=== PATIENT | female | born 1950 | race Caucasian/White ===

== ENCOUNTER 2016-10-04 10:35 | Emergency (ER) | payer BC ==
[~2016-10-04] VITALS: Ht 160 cm; Wt 85.7 kg
[~2016-10-04 10:35] MED LIST: AMLO2.5T PO; AMOX875T PO; ATOR-24 PO; CHOL100010 PO; CRG40 PO; CTP3 PO; GLC500 PO; INSDGI SC; MULT-506 PO; NVLGI SC; PANT40TA PO; SYN200 PO
[2016-10-04 10:49] VITALS: TEMP 36.9; Ht 160 cm; Wt 85.7 kg
[2016-10-04] MEDS ORDERED: SODIUM CHLORIDE 0.9% 1000ML 1,000 ML IV STA (11:07)
[2016-10-04] MEDS ORDERED: ONDANSETRON INJ 2 MG/ML 2 ML VIAL IV STA (11:07)
[2016-10-04] MEDS ORDERED: MECLIZINE HCL 25 MG TAB PO STA (11:07)
[2016-10-04] MEDS ORDERED: SODIUM CHLORIDE 0.9% 1000ML 500 ML IV STA (11:07)
--- NOTE | 2016-10-04 11:12 | EMERGENCY ROOM VISIT NOTE ---
History Report prepared by Nicholas: Toshia Loco Under the Supervision of: Dr. Sabas Dias M.D. First contact with patient: 11:00 Chief Complaint: DIZZY Stated Complaint: DIZZY,STOMACH UPSET,HEART WAS POUDNING BAD History of Present Illness The patient is a 66 year old female who presents to the Emergency Room with complaints of persistent dizziness that started around midnight last night. She states "I got up and was staggering around like I was drunk". She tried to go back to sleep, but experienced nausea and her heart "pounding". She attempted to get some things done around the house, but her symptoms persisted, so she came here to the ED. She notes about 3 days ago, she experienced an "aching" in both of her arms, almost like pain from overuse, but she had not done anything physical that day. The pain eventually resolved, but she admits to some chest pain that started 2 days ago, and states she is still experiencing pain in the left side of her chest. She denies any history of previous [place]'s or vertigo. She admits to issues with chronic sinusitis and ear infections. She notes she was recently placed on a new medication for diabetes, and admits to feeling "irritated" in her urinary area since starting the new medication. Source of History: patient Onset: midnight last night Position: other (global) Timing: other (persistent) Associated Symptoms: + chest pain, + nausea Review of Systems See HPI for pertinent positives & negatives. A total of 10 systems reviewed and were otherwise negative. Past Medical & Surgical Medical Problems: (1) Diabetes mellitus Social History Smoking Status: Never Smoker Alcohol Use: occasionally Drug Use: none Marital Status: Housing Status: lives with family Occupation Status: employed Current/Historical Medications Scheduled Amlodipine Besylate (Norvasc), 5 MG OR DAILY Atorvastatin (Lipitor), 40 MG PO DAILY Clonidine Hcl (Catapres *), 0.3 MG PO HS Insulin Aspart (Novolog), 0 SC AC Insulin Glargine (Lantus), 65-70 UNITS SC QPM Insulin Glargine (Lantus), 12 UNIT SC QAM Levothyroxine Sodium (Synthroid), 200 MCG PO DAILY Levothyroxine Sodium (Synthroid), 50 MCG PO DAILY Metformin HCl (Metformin HCl), 500 MG PO QID Nadolol (Corgard *), 80 MG PO BID Pantoprazole (Protonix), 40 MG PO DAILY PRN Scheduled PRN Meclizine HCl (Meclizine HCl), 1 TAB PO Q6 PRN for Dizziness or Vertigo Allergies Coded Allergies: Cat Dander (Unverified Allergy, Mild, ITCHY EYES, 10/04/16) Dog Dander (Unverified Allergy, Mild, ITCHY EYES, 10/04/16) Dust (Unverified Allergy, Mild, ITCHY EYES, 10/04/16) Molds & Smuts (Unverified Allergy, Mild, ITCHY EYES, 10/04/16) Physical Exam Vital Signs Date Time Temp Pulse Resp B/P Pulse Ox O2 Delivery O2 Flow Rate FiO2 10/04/16 13:18 66 14 195/95 96 Room Air 10/04/16 12:31 55 20 153/84 96 Room Air 10/04/16 11:14 99 Room Air 10/04/16 11:07 63 10/04/16 10:49 36.9 60 18 195/95 99 Room Air Physical Exam GENERAL: Patient is in no acute distress. HEENT: No acute trauma, normocephalic atraumatic, mucous membranes moist, no nasal congestion, no scleral icterus, no nystagmus, PERRL. Fluid behind both TM' s, no infection. NECK: No stridor, no adenopathy, no meningismus, trachea is midline. LUNGS: Clear to auscultation bilaterally, no wheeze, no rhonchi, breath sounds equal. HEART: Without murmurs gallops or rubs, regular rate and rhythm. ABDOMEN: Soft, nontender, bowel sounds positive, no hernias, no peritonitis. EXTREMITIES: No cyanosis or edema, full range of motion of all the joints without pain or difficulty, no signs for acute trauma. NEUROLOGIC: Oriented x 3, no acute motor or sensory deficits, no focal weakness. No pronator drift or cerebellar disfunction. SKIN: No rash, no jaundice, no diaphoresis. Medical Decision & Procedures ER Provider Diagnostic Interpretation: This CT scan was reviewed and interpreted by the radiologist and reviewed by myself. CT HEAD WITHOUT CONTRAST (CT) IMPRESSION: No acute intracranial findings Electronically signed by: Ashok Cook M.D. 10/04/2016 12:02 PM Laboratory Results 10/04/16 11:15 Red Blood Count 5.21, Mean Corpuscular Volume 83.5, Mean Corpuscular Hemoglobin 28.8, Mean Corpuscular Hemoglobin Concent 34.5, Mean Platelet Volume 10.7, Neutrophils (%) (Auto) 65.0, Lymphocytes (%) (Auto) 23.7, Monocytes (%) (Auto) 8.9, Eosinophils (%) (Auto) 1.9, Basophils (%) (Auto) 0.3, Neutrophils # (Auto) 6.66, Lymphocytes # (Auto) 2.43, Monocytes # (Auto) 0.91, Eosinophils # (Auto) 0.19, Basophils # (Auto) 0.03 10/04/16 11:15 Test 10/04/16 11:15 10/04/16 12:30 White Blood Count 10.24 K/uL (4.8-10.8) Red Blood Count 5.21 M/uL (4.2-5.4) Hemoglobin 15.0 g/dL (12.0-16.0) Hematocrit 43.5 % (37-47) Mean Corpuscular Volume 83.5 fL (80-100) Mean Corpuscular Hemoglobin 28.8 pg (25-34) Mean Corpuscular Hemoglobin Concent 34.5 g/dl (32-36) Platelet Count 236 K/uL (130-400) Mean Platelet Volume 10.7 fL (7.4-10.4) Neutrophils (%) (Auto) 65.0 % Lymphocytes (%) (Auto) 23.7 % Monocytes (%) (Auto) 8.9 % Eosinophils (%) (Auto) 1.9 % Basophils (%) (Auto) 0.3 % Neutrophils # (Auto) 6.66 K/uL (1.4-6.5) Lymphocytes # (Auto) 2.43 K/uL (1.2-3.4) Monocytes # (Auto) 0.91 K/uL (0.11-0.59) Eosinophils # (Auto) 0.19 K/uL (0-0.5) Basophils # (Auto) 0.03 K/uL (0-0.2) RDW Standard Deviation 42.1 fL (36.4-46.3) RDW Coefficient of Variation 13.7 % (11.5-14.5) Immature Granulocyte % (Auto) 0.2 % Immature Granulocyte # (Auto) 0.02 K/uL (0.00-0.02) Anion Gap 8.0 mmol/L (3-11) Est Creatinine Clear Calc Drug Dose 77.6 ml/min Estimated GFR () 96.1 Estimated GFR (Non- 82.9 BUN/Creatinine Ratio 13.8 (10-20) Calcium Level 9.1 mg/dl (8.5-10.1) Total Bilirubin 0.3 mg/dl (0.2-1) Aspartate Amino Transf (AST/SGOT) 8 U/L (15-37) Alanine Aminotransferase (ALT/SGPT) 20 U/L (12-78) Alkaline Phosphatase 129 U/L (45-117) Troponin I < 0.015 ng/ml (0-0.045) Total Protein 7.4 gm/dl (6.4-8.2) Albumin 3.7 gm/dl (3.4-5.0) Globulin 3.7 gm/dl (2.5-4.0) Albumin/Globulin Ratio 1.0 (0.9-2) Thyroid Stimulating Hormone (TSH) 1.110 uIu/ml (0.300-4.500) Free Thyroxine 1.04 ng/dl (0.80-1.60) Urine Color YELLOW Urine Appearance CLEAR (CLEAR) Urine pH 7.0 (4.5-7.5) Urine Specific [place] 1.031 (1.000-1.030) Urine Protein NEG (NEG) Urine Glucose (UA) 3+ (NEG) Urine Ketones NEG (NEG) Urine Occult Blood NEG (NEG) Urine Nitrite NEG (NEG) Urine Bilirubin NEG (NEG) Urine Urobilinogen NEG (NEG) Urine Leukocyte Esterase NEG (NEG) Laboratory results reviewed by me. Medications Administered Medications (Trade) Dose Ordered Sig/Alejandro Route Start Time Stop Time Status Last Admin Dose Admin Sodium Chloride (Nss 1000ml) 500 ml @ 999 mls/hr Q31M STAT IV 10/04/16 11:07 10/04/16 11:37 DC 10/04/16 11:19 999 MLS/HR Ondansetron HCl 4 mg 4 mg NOW STAT IV 10/04/16 11:07 10/04/16 11:09 DC 10/04/16 11:19 4 MG Sodium Chloride (Nss 1000ml) 1,000 ml @ 200 mls/hr Q5H STAT IV 10/04/16 11:07 10/04/16 13:45 DC 10/04/16 11:19 200 MLS/HR Meclizine HCl (Antivert Tab) 25 mg NOW STAT PO 10/04/16 11:07 10/04/16 11:09 DC 10/04/16 11:19 25 MG Amlodipine Besylate (Norvasc Tab) 5 mg NOW ONCE PO 10/04/16 13:00 10/04/16 13:02 DC 10/04/16 13:13 5 MG Nadolol (Corgard Tab) 80 mg NOW STAT PO 10/04/16 12:59 10/04/16 13:02 DC 10/04/16 13:13 80 MG ECG Indication: weakness Rate (beats per minute): 64 Rhythm: normal sinus (normal sinus rhythm) Findings: no acute ischemic change, no ectopy ED Course 1101: The patient was evaluated in room C4. A complete history and physical exam was performed. 1107: Meclizine HCl 25 mg PO, NSS 1000 ml @ 200 mls/hr IV, Zofran 4 mg IV, NSS 500 ml @ 999 mls/hr IV. 1246: I reevaluated the patient. She is feeling much better. I discussed her results and discharge instructions and she verbalized complete understanding and agreement. 1258: Nursing informed me the patient would like her normal blood pressure medications before she leaves the ED. She did not take them this morning. I will place orders. 1259: Corgard Tab 80 mg PO. 1300: Norvasc Tab 5 mg PO. Medical Decision The differential diagnoses considered include: Dehydration, vertigo, UTI, anemia , electrolyte imbalance, cardiac ischemia and dysrhythmia. There is no leukocytosis or concerning anemia. No significant electrolyte abnormality, kidney failure, hepatitis. The patient appears to be in a euthyroid state. EKG shows a normal sinus rhythm, no acute ischemia. Cardiac enzyme testing times one is not suggestive of acute cardiac injury. Brain CT shows no acute bleed or mass effect. Urinalysis does not show evidence for infection. On exam, the patient had no focal neurologic deficits. The patient received IV saline, IV Zofran and oral meclizine. The patient feels improved. As she had forgotten to take her normal blood pressure medications this a.m., she received oral Norvasc and oral Corgard. The patient does feel improved. I think her presentation is secondary to vertigo. She does have worsening symptoms with movement, she has a spinning sensation. She feels improved with treatment and is being discharged with some meclizine for her symptoms. Her chest pain is not consistent with cardiac ischemia, it is not exertional. I suspect it is musculoskeletal. Impression Primary Impression: Dizziness Scribe Attestation The scribe's documentation has been prepared under my direction and personally reviewed by me in its entirety. I confirm that the note above accurately reflects all work, treatment, procedures, and medical decision making performed by me. Departure Information Dispostion Home / Self-Care Prescriptions Meclizine HCl (Meclizine HCl) 25 Mg Tab 1 TAB PO Q6 Y for Dizziness or Vertigo, #15 TAB Prov: Sabas Dias M.D. 10/04/16 Referrals Gagandeep Marte M.D. (PCP) Patient Instructions My [facility] Additional Instructions rest stay well hydrated meclizine 1 tab every 6 hours as needed for vertigo return for worsening symptoms or vomiting see negrito powell for a recheck this week
[2016-10-04 11:14] VITALS: O2SAT 99
[2016-10-04] MEDS ORDERED: LEVO50TA PO (11:29)
[2016-10-04] MEDS ORDERED: LEVO200T PO (11:29)
[2016-10-04] MEDS ORDERED: GLC500 PO (11:30)
[2016-10-04 11:31] LABS: BASO % 0.3 %; BASO ABS # 0.03 K/uL (0-0.2); COMPLETE YES; EOS % 1.9 %; HEMATOCRIT 43.5 % (37-47); IG% 0.2 %; LYMPH % 23.7 %; LYMPH ABS # 2.43 K/uL (1.2-3.4); MEAN CELL VOLUME 83.5 fL (80-100); MEAN CORPUSCULAR HEMOGLOBIN 28.8 pg (25-34); MEAN CORPUSCULAR HGB CONC 34.5 g/dl (32-36); MEAN PLATELET VOLUME 10.7 fL (7.4-10.4); MONO % 8.9 %; PLATELET COUNT 236 K/uL (130-400); RED BLOOD COUNT 5.21 M/uL (4.2-5.4); WHITE BLOOD COUNT 10.24 K/uL (4.8-10.8)
[2016-10-04 11:51] LABS: ALT/SGPT 20 U/L (12-78); AST/SGOT 8 U/L (15-37); BLOOD UREA NITROGEN 10 mg/dl (7-18); BUN/CREATININE RATIO 13.8 (10-20); CALCIUM 9.1 mg/dl (8.5-10.1); CARBON DIOXIDE 26 mmol/L (21-32); CHLORIDE 107 mmol/L (98-107); CREATININE 0.76 mg/dl (0.60-1.20); GLUCOSE 152 mg/dl (70-99); SODIUM 141 mmol/L (136-145)
[2016-10-04 12:01] LABS: ALKALINE PHOSPHATASE 129 U/L (45-117)
--- NOTE | 2016-10-04 12:04 | DIAGNOSTIC IMAGING REPORT ---
CT HEAD WITHOUT CONTRAST (CT) CLINICAL HISTORY: Altered mental status and weakness. COMPARISON STUDY: CT scan of paranasal sinuses dated 07/24/2014 TECHNIQUE: Axial CT of the brain is performed from the vertex to the skull base. IV contrast was not administered for this examination. CT DOSE: 810.83 mGy.cm FINDINGS: No intra or extra-axial mass lesions are visualized. There is no CT evidence of acute cortical infarction. There is no evidence of midline shift. There is no acute hemorrhage. No calvarial fractures are visualized. There are patchy white matter hypodensities likely on a small vessel basis. There is no evidence of pathologic ventricular dilatation. Postsurgical changes are present within the sinuses. There is moderate bilateral maxillary sinus mucosal thickening. There is ethmoid sinus mucosal thickening. There is a stable 8 mm lytic focus within the right frontal bone. IMPRESSION: No acute intracranial findings Electronically signed by: Ashok Cook M.D. 10/04/2016 12:02 PM Dictated Date/Time: 10/04/2016 12:00 PM
[2016-10-04 12:42] LABS: URINE APPEARANCE CLEAR (CLEAR); URINE BILIRUBIN NEG (NEG); URINE COLOR YELLOW; URINE NITRITE NEG (NEG); URINE SPECIFIC GRAVITY 1.031 (1.000-1.030); UROBILINOGEN NEG (NEG); ZZUR CULT IF INDIC CLEAN CATCH NO
[2016-10-04 12:43] LABS: MANUAL MICROSCOPIC REQUIRED? NO; REVIEW REQ? NO
[2016-10-04] MEDS ORDERED: ANT25 PO (12:57)
[2016-10-04] MEDS ORDERED: NADOLOL 40 MG TAB PO STA (12:59)
[2016-10-04] MEDS ORDERED: AMLODIPINE BESYLATE 5 MG TAB PO ONE (13:00)
[2016-10-04 13:18] VITALS: BP 195/95; PULSE 66; O2SAT 96
[2017-06-17] MEDS ORDERED: NADO80TA PO (14:23)
[2017-06-17] MEDS ORDERED: LEVO200T PO (14:23)
[2017-06-17] MEDS ORDERED: NVLG SQ ×2 (14:23)
[2017-06-17] MEDS ORDERED: CLON0.3T3 PO (14:23)
[2017-06-17] MEDS ORDERED: INSDGI SC (14:24)
[2017-06-18] MEDS ORDERED: HYDR-5688 PO (10:41)
== END 2016-10-04 13:27 | disposition home or self-care (01) ==
LOC: C.EDB 10:36 → C.EDC 13:27
DX: R42 Dizziness and giddiness (principal); E11.9 Type 2 diabetes mellitus without complications; Z79.4 Long term (current) use of insulin; Z79.84 Long term (current) use of oral hypoglycemic drugs

== ENCOUNTER → 2017-06-18 | Day surgery (SDC) | payer OTHER ==
[2017-06-17 14:09] VITALS: Ht 160 cm; Wt 81.8 kg
[~2017-06-18] VITALS: Ht 160 cm; Wt 81.8 kg
[~2017-06-18] MED LIST changes: -AMOX875T PO; +ATROPINE SULFATE 0.1 MG/ML 5ML SYR IV PRN; +CEFAZOLIN 2000 MG/60 ML D5W IV SCH; -CHOL100010 PO; +CLON0.3T3 PO; -CRG40 PO; -CTP3 PO; +DEXAMETHASONE SOD INJ 4 MG/ML VIAL ONE; +EpHEDrine SULFATE INJ 50 MG/ML AMP IV PRN; +EpINEphrine INJ 1MG/ML AMP 1 MG/ML AMP ONE; +FENTANYL CITRATE INJ 50 MCG/1 ML 2 ML VIAL IV PRN; +FENTANYL CITRATE INJ 50 MCG/1 ML 2 ML VIAL ONE; +HYDR-5688 PO; +HYDROCODONE/ACETAMOPHEN 5/325MG TAB PO PRN; +LEVO200T PO; +LIDO 2%/EPINEPHRINE 1:100000 20 ML VIAL INFIL ONE; +LIDOCAINE 4% MPF SOAK 5 ML = 1 DOSE TOP ONE; +LIDOCAINE HCL 2% 2 ML VIAL (20MG/ML) ONE; +MIDAZOLAM HCL 1 MG/ML 2ML VIAL ONE; -MULT-506 PO; +NADO80TA PO; +NVLG SQ; -NVLGI SC; +ONDANSETRON INJ 2 MG/ML 2 ML VIAL IV PRN; +ONDANSETRON INJ 2 MG/ML 2 ML VIAL ONE; +PROMETHAZINE HCL INJ 6.25 MG in SODIUM CHLORIDE 0.9% 50ML 50 ML IV PRN; +PROPOFOL IV EMULSION 10 MG/ML 20 ML VIAL IV ONE; +SODIUM CHLORIDE 0.9% 1000ML 1,000 ML IV SCH; -SYN200 PO
--- NOTE | 2017-06-18 06:58 | History and Physical: Surg Cnt ---
History & Physical Date Jun 18, 2017. Chief Complaint sinusitis History of Present Illness The patient is a 67 year old female with complaints of chronic sinusitis with left maxillary sinus fungus ball Past Medical/Surgical History Medical Problems: (1) Diabetes mellitus Additional History Hepatic Disease: No Endocrine Disorder: Yes Kidney Disease: No Hypertension: Yes Heart Disease: No Bleeding Tendencies: No Infectious Diseases: No Allergies Coded Allergies: Cat Dander (Unverified Allergy, Mild, ITCHY EYES, 06/17/17) Dog Dander (Unverified Allergy, Mild, ITCHY EYES, 06/17/17) Dust (Unverified Allergy, Mild, ITCHY EYES, 06/17/17) Molds & Smuts (Unverified Allergy, Mild, ITCHY EYES, 06/17/17) NO KNOWN DRUG ALLERGIES (Verified Allergy, Mild, ., 06/17/17) Home Medications Scheduled Amlodipine Besylate (Norvasc), 2.5 MG PO QAM Atorvastatin (Lipitor), 40 MG PO HS Clonidine Hcl (Catapres), 2 TAB PO HS Insulin Aspart (Novolog), 10 UNITS SQ QAM AND LUNCH Insulin Aspart (Novolog), 15 UNITS SQ DINNER Insulin Glargine (Lantus), 65 UNITS SC QPM Levothyroxine Sodium (Synthroid), 200 MCG PO ,,W,TH,SAT Levothyroxine Sodium (Synthroid), 400 MCG PO THU, THU Metformin HCl (Metformin HCl), 500 MG PO BID Nadolol (Corgard), 80 MG PO BID Pantoprazole (Protonix), 40 MG PO QAM Physical Examination Skin: warm/dry, no rash Eyes: normal inspection, EOMI, sclerae normal ENT: normal ENT inspection, pharynx normal Head: normocephalic, atraumatic Neck: supple, no adenopathy, trachea midline Respiratory/Chest: lungs clear, normal breath sounds, no respiratory distress Cardiovascular: regular rate, rhythm, no edema, no murmur Abdomen / GI: normal bowel sounds, non tender Back: normal inspection Extremities: normal inspection, normal range of motion Neurologic/Psych: no motor/sensory deficits, alert, normal reflexes, oriented x 3 Diagnosis chronic sinusitis with left maxillary fungus ball Plan of Treatment endoscopic sinus surgery
--- NOTE | 2017-06-18 06:58 | History & Physical Bridge Note ---
H&P Re-Evaluation Bridge Note: I have examined the patient, reviewed the History & Physical and in the interval since the performance of the History & Physical I have noted the following changes of clinical significance: No changes noted
[2017-06-18] MEDS: LACTATED RINGER'S 1000ML 1,000 ML IV SCH ×2 (08:23→11:35)
--- NOTE | 2017-06-18 10:43 | Discharge Instructions-SurgCtr ---
Discharge Instructions Date of Service Jun 18, 2017. Visit Reason for Visit: Chronic Sinusitis Discharge Discharge Diagnosis / Problem: and polyposis Discharge Goals Goal(s): Improve disease control Medications Stopped Medications Name(s): metformin last dose Thursday. No insulin this am. Activity Recommendations Activity Limitations: per Instructions/Follow-up section Anesthesia . Post Anesthesia Instructions: If you have had General Anesthesia or IV Sedation: * Do not drive today. * Resume driving when surgeon permits. * Do not make important decisions or sign legal documents today. * Call surgeon for: 1. Temperature elevations greater than 101 degrees F. 2. Uncontrollable pain. 3. Excessive bleeding. 4. Persistent nausea and vomiting. 5. Medication intolerance (nausea, vomiting or rash). * For nausea and vomiting use only clear liquids such as: tea, soda, bouillon until nausea subsides, then gradually increase diet as tolerated. * If you have any concerns or questions, call your surgeon's office. If physician is unavailable and it is an emergency, call 911 or go to the nearest emergency room. . Instructions / Follow-Up Instructions / Follow-Up ACTIVITY RECOMMENDATIONS: * Being up and around is good, but no strenuous activity, heavy lifting or physical exertion for one week. * Keep your head elevated 30 degrees when lying down or sleeping. * Do not blow your nose for 48 hours, sniff back instead. * Avoid hot showers. OVER THE COUNTER MEDICATIONS: * You may use Tylenol * Avoid aspirin or aspirin containing products, e.g. as they may increase bleeding. SPECIAL CARE INSTRUCTIONS: * Expect to have bloody drainage from your nose and/or down your throat for one to three days. Change drip pad as needed. * Begin irrigating your nose with saline solution today, at least six to ten times per day and sniff back to help remove old clots or crust. * You may experience nasal and facial congestion, pain and pressure, this is normal. * Please call with any significant and/or progressive pain, redness, swelling around the eyes, visual changes, fever of 101.5 degrees F, active bleeding or any problems or concerns. * If active bleeding occurs, spray the nose three times at one minute intervals with Afrin spray and call or cell phone: . If unable to reach the doctor, go to the nearest Emergency Department. Special Diet: * Avoid extremely hot fluids. FOLLOW UP VISIT: Follow-up Visit with Dr. Ding If not already scheduled, please call to schedule. Diet Recommendations Home Diet: resume previous diet Procedures Procedures Performed: Right and Left Frontal, Right and Left Total Ethmoidectomies, Right and Left Maxillary Sinusectomies Pending Studies Studies pending at discharge: no Medical Emergencies . Who to Call and When: Medical Emergencies: If at any time you feel your situation is an emergency, please call 911 immediately. . Non-Emergent Contact Non-Emergency issues call your: Primary Care Provider . . "Provider Documentation" section prepared by Lisa Ding. . [place] Drug Monitoring Program Search Results: no issues identified
--- NOTE | 2017-06-18 10:54 | [facility] Operative Report ---
Operative Report Operative Date Jun 18, 2017. 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 At surgery she was found to have mucopurulent drainage as noted above Description of Procedure The patient was brought to the operating room and placed in the supine position. She was prepped and draped in the usual sterile manner. transOMICLab device was calibrated and used for the entire procedure. The left nasal frontal duct was cannulated with the guidewire with BrainLab computer guidance and dilated using the 6 mm balloon. There was purulent material expressed from the left frontal sinus. The guidewire was removed and the frontal sinus was irrigated clean with saline using approximately 40 mL. The guidewire was reintroduced as the catheter was withdrawn. The guidewire was used as the marker for frontal sinusotomy. The ethmoid cavity was totally filled with polyps and purulent material. All the polyps were removed using the shaver couple with the BrainLab device and following the guidewire superiorly to the nasal frontal duct by removing the adhesions and polypoid tissue anterior to the guidewire and then removing the anterior and posterior ethmoid cavity, removing the cavity of polyps following the skull base and lamina papyracea with the BrainLab device. The maxillary sinus was opened using the seeker again encountering copious amounts of purulent material which had to be irrigated clean. Polyps at the maxillary sinus ostia were removed using the shaver. The maxillary antrostomy was large from the previous surgery and was again widely opened. The left maxillary sinus had to be irrigated clean multiple times to clean out all the mucopurulent material. The right frontal sinusotomy total ethmoidectomy maxillary sinus antrostomy was performed in a similar manner, again finding the ethmoid cavity to be totally filled with polyps and that maxillary sinus to be blocked with polypoid tissue and to be filled with mucopurulent material which was again irrigated clean with saline. Propel stents were placed in the nasal frontal duct and in the ethmoid cavity. The patient her procedure well and was taken recovery area in satisfactory condition. I attest to the content of the Intraoperative Record and any orders documented therein. Any exceptions are noted below.
--- NOTE | 2017-06-18 11:24 | Anesthesia Progress Nt - [facility] ---
Anesthesia Post Op Note Date & Time Jun 18, 2017 at 11:24 Vital Signs Pain Intensity: 0 Vital Signs Past 12 Hours Date Time Temp Pulse Resp B/P (MAP) Pulse Ox O2 Delivery O2 Flow Rate FiO2 06/18/17 11:08 58 13 06/18/17 11:08 58 13 97 06/18/17 11:06 170/82 06/18/17 11:03 64 14 95 06/18/17 11:03 65 14 06/18/17 11:01 173/83 06/18/17 10:58 61 13 94 06/18/17 10:58 61 13 06/18/17 10:56 169/83 06/18/17 10:53 61 12 06/18/17 10:53 62 12 94 06/18/17 10:51 184/89 06/18/17 10:51 187/85 06/18/17 10:49 193/93 06/18/17 10:48 36.0 69 16 184/85 93 Humidified Oxygen 10 Mask 06/18/17 10:48 72 90 06/18/17 10:48 72 06/18/17 07:55 36.9 56 16 170/89 (116) 96 Room Air Notes Mental Status: alert / awake / arousable, participated in evaluation Pt Amnestic to Procedure: Yes Nausea / Vomiting: adequately controlled Pain: adequately controlled Airway Patency, RR, SpO2: stable & adequate BP & HR: stable & adequate Hydration State: stable & adequate Anesthetic Complications: no major complications apparent
[2017-06-18 12:33] VITALS: TEMP 36.7
[2017-06-18 12:53] VITALS: BP 154/72; PULSE 65; O2SAT 98
== END | disposition home or self-care (01) ==
LOC: X.SURG 07:41
PROVIDERS: ATTEND Otolaryngology
DX: J32.9 Chronic sinusitis, unspecified (principal); J33.8 Other polyp of sinus; E11.9 Type 2 diabetes mellitus without complications; Z79.4 Long term (current) use of insulin; Z79.84 Long term (current) use of oral hypoglycemic drugs; Z79.899 Other long term (current) drug therapy